=== PATIENT | female | born 1960 | race Caucasian/White ===

== ENCOUNTER 2024-09-24 16:07 | Emergency (ER) | payer BC | END 2024-09-24 17:07 | disposition home or self-care (01) | LOC: KA.ED 16:07 → MERGE 16:07 → KA.ED 17:07 | DX: M53.3 Sacrococcygeal disorders, not elsewhere classified (principal); I10 Essential (primary) hypertension; Z88.5 Allergy status to narcotic agent; Z88.8 Allergy status to other drugs, medicaments and biological substances; Z79.890 Hormone replacement therapy; Z79.899 Other long term (current) drug therapy; Z79.01 Long term (current) use of anticoagulants | CPT/HCPCS: 99283 ==

== ENCOUNTER 2024-11-12 19:50 | Emergency (ER) | payer MEDICARE | END 2024-11-12 21:40 | disposition home or self-care (01) | LOC: KA.ED 19:50 | DX: M62.830 Muscle spasm of back (principal); I10 Essential (primary) hypertension; K21.9 Gastro-esophageal reflux disease without esophagitis; Z88.5 Allergy status to narcotic agent; Z88.8 Allergy status to other drugs, medicaments and biological substances; Z79.890 Hormone replacement therapy; Z79.899 Other long term (current) drug therapy; Z79.01 Long term (current) use of anticoagulants | CPT/HCPCS: 99283; A9270-GY ==

== ENCOUNTER 2025-03-05 09:00 | Emergency (ER) | payer MEDICARE, OTHER ==
[2025-03-05] MEDS: Sodium Chloride 0.9% 10 ML Syringe FLUSH PRN (09:06)
[2025-03-05 09:13] LABS: BASOPHILS ABSOLUTE AUTO 0.04 10^3/uL (0.00-0.10); BASOPHILS PERCENT AUTO 0.2 % (0.0-1.0); EOSINOPHILS ABSOLUTE AUTO 0.07 10^3/uL (0.10-0.30); EOSINOPHILS PERCENT AUTO 0.4 % (1.0-3.0); IMMATURE GRAN ABSOLUTE AUTO 0.05 10^3/uL (0.00-0.04); IMMATURE GRAN PERCENT AUTO 0.3 % (0.0-0.4); LYMPHOCYTES ABSOLUTE AUTO 2.29 10^3/uL (1.00-4.00); LYMPHOCYTES PERCENT AUTO 11.9 % (20.0-40.0); MEAN PLATELET VOLUME 9.6 fL (7.4-10.4); MONOCYTES ABSOLUTE AUTO 1.33 10^3/uL (0.10-0.80); MONOCYTES PERCENT AUTO 6.9 % (2.0-8.0); NEUTROPHILS ABSOLUTE AUTO 15.43 10^3/uL (2.50-7.00); NEUTROPHILS PERCENT AUTO 80.3 % (50.0-70.0); PLATELET COUNT,PLT 246 10^3/uL (150-400); RED BLOOD CELL COUNT 4.79 10^6/uL (3.80-5.50); RED CELL DISTRIBUTION WIDTH 12.0 % (11.5-14.5); WHITE BLOOD CELL COUNT,WBC 19.21 10^3/uL (5.00-10.00)
[2025-03-05 09:43] LABS: APPEARANCE,URINE CLEAR (CLEAR); EPITHELIAL CELLS,URINE FEW /LPF; GLUCOSE,URINE NEGATIVE (NEGATIVE); OCCULT BLOOD,URINE TRACE-INTACT (NEGATIVE)
[2025-03-05 09:58] LABS: ALANINE AMINOTRANSFERASE,ALT 57.0 U/L (14-63); ASPARTATE AMNIOTRANSFERASE,AST 80.0 U/L (15-37); BILIRUBIN TOTAL 1.7 mg/dL (0.2-1.0); BLOOD UREA NITROGEN,BUN 24.0 mg/dL (7-18); CARBON DIOXIDE,CO2 27.5 mmol/L (21.0-32.0); CHLORIDE,CL 105.0 mmol/L (98-107); CREATININE 1.05 mg/dL (0.51-1.17); EST CRCL DRUG DOSING (CG) 40.31 mL/min; ESTIMATED GFR 59.0 mL/min (>=60); GLUCOSE RANDOM 188.0 mg/dL (70-140); POTASSIUM,K 3.8 mmol/L (3.5-5.1); PROTEIN TOTAL,TP 7.4 g/dL (6.4-8.2); SODIUM,NA 143.0 mmol/L (136-145)
[2025-03-05 10:06] LABS: INR 2.2 (0.9-1.1); PTT,PARTIAL THROMBOPLSTIN TIME 33.9 SEC (21.6-32.4)
== END 2025-03-05 15:22 ==
LOC: KA.ED 09:00 → SUPCPDRO 09:00 → KA.ED 15:22
DX: M62.82 Rhabdomyolysis (principal); R79.89 Other specified abnormal findings of blood chemistry; D72.828 Other elevated white blood cell count; R41.0 Disorientation, unspecified; I10 Essential (primary) hypertension; K21.9 Gastro-esophageal reflux disease without esophagitis; Z88.5 Allergy status to narcotic agent; Z88.8 Allergy status to other drugs, medicaments and biological substances; Z79.890 Hormone replacement therapy; Z79.899 Other long term (current) drug therapy; Z79.01 Long term (current) use of anticoagulants
CPT/HCPCS: 36415; 70450; 71045; 80053; 80307; 81001; 82140; 82550; 83605; 84484; 85025; 85610; 85730; 87040; 93005; 93010; 96360; 96361; 99284; 99285-25; J7030